=== PATIENT | female | born 1990 | race American Indian/Alaskan Native ===

== ENCOUNTER 2018-03-24 15:52 | Emergency (ER) | payer SELFPAY ==
[2018-03-24 16:04] VITALS: BP 123/64
--- NOTE | 2018-03-24 17:37 | Emergency Department Report ---
ED Headache HPI - General Chief Complaint: Headache Stated Complaint: MIGRAINE HEADACHE Time Seen by Provider: 03/24/18 17:23 - History of Present Illness Initial Comments: Patient is a 27-year-old female who is presenting with cough, congestion and headache. Patient states her headache is mostly frontal and region as well as above her nose and maxillary area. Patient says she is coughing and congested. Patient states is productive of just clear sputum. Patient denies any fevers or bodyaches nausea vomiting at this time. Patient states the headache is 5 out of 10 in severity. Allergies/Adverse Reactions: Allergies No Known Allergies Allergy (Unverified 02/04/14 11:58) Home Medications: Ambulatory Orders HYDROcodone/APAP 10-325 [Reydon 10-325 mg TAB] 1 each PO Q6HR PRN #12 tablet 08/12 Sulfamethoxazole/Trimethoprim [Bactrim Ds] 1 each PO Q12H #14 tablet 02/04/14 Doxycycline [Vibramycin] 100 mg PO Q12HR #28 capsule 05/28/16 Ketorolac [Toradol] 10 mg PO Q6H PRN #20 tablet 05/28/16 Ondansetron [Zofran Odt] 4 mg PO QID PRN #20 tab.rapdis 05/28/16 Amoxicillin/Potassium Clav [Augmentin 875-125 Tablet] 1 each PO BID #14 tablet 03/24/18 predniSONE [Deltasone] 20 mg PO QDAY #5 tab 03/24/18 traMADol [Ultram] 50 mg PO Q6HR PRN #10 tablet 03/24/18 ED Review of Systems ROS: Stated complaint: MIGRAINE HEADACHE Other details as noted in HPI Comment: All other systems reviewed and negative ED Past Medical Hx - Past Medical History Previous Medical History?: No - Surgical History Past Surgical History?: No - Social History Smoking Status: Never Smoker Substance Use Type: Alcohol - Medications Home Medications: Home Medications Medication Instructions Recorded Confirmed Last Taken Type HYDROcodone/APAP 10-325 [Reydon 1 each PO Q6HR PRN #12 tablet 02/04/14 Unknown Rx 10-325 mg TAB] Sulfamethoxazole/Trimethoprim 1 each PO Q12H #14 tablet 02/04/14 Unknown Rx [Bactrim Ds] Doxycycline [Vibramycin] 100 mg PO Q12HR #28 capsule 05/28/16 Unknown Rx Ketorolac [Toradol] 10 mg PO Q6H PRN #20 tablet 05/28/16 Unknown Rx Ondansetron [Zofran Odt] 4 mg PO QID PRN #20 tab.rapdis 05/28/16 Unknown Rx Amoxicillin/Potassium Clav 1 each PO BID #14 tablet 03/24/18 Unknown Rx [Augmentin 875-125 Tablet] predniSONE [Deltasone] 20 mg PO QDAY #5 tab 03/24/18 Unknown Rx traMADol [Ultram] 50 mg PO Q6HR PRN #10 tablet 03/24/18 Unknown Rx ED Physical Exam - General Limitations: No Limitations General appearance: alert, in no apparent distress - Head Head exam: Present: atraumatic, normocephalic, other (is mild sinus tenderness diffusely) - Eye Eye exam: Present: normal appearance - ENT ENT exam: Present: mucous membranes moist - Neck Neck exam: Present: normal inspection - Respiratory Respiratory exam: Present: normal lung sounds bilaterally. Absent: respiratory distress - Cardiovascular Cardiovascular Exam: Present: regular rate, normal rhythm. Absent: systolic murmur, diastolic murmur, rubs, gallop - GI/Abdominal GI/Abdominal exam: Present: soft, normal bowel sounds - Extremities Exam Extremities exam: Present: normal inspection - Back Exam Back exam: Present: normal inspection - Neurological Exam Neurological exam: Present: alert, oriented X3 - Psychiatric Psychiatric exam: Present: normal affect, normal mood - Skin Skin exam: Present: warm, dry, intact, normal color. Absent: rash ED Course Vital Signs 03/24/18 16:02 Temperature 98.2 F Pulse Rate 87 Respiratory 18 Rate Blood Pressure 123/64 O2 Sat by Pulse 99 Oximetry Critical care attestation.: If time is entered above; I have spent that time in minutes in the direct care of this critically ill patient, excluding procedure time. ED Disposition Clinical Impression: Upper respiratory infection Qualifiers: URI type: unspecified URI Qualified Code(s): J06.9 - Acute upper respiratory infection, unspecified Acute sinusitis Qualifiers: Sinusitis location: pansinusitis Disposition: - TO HOME OR SELFCARE Is pt being admited?: No Does the pt Need Aspirin: No Condition: Stable Instructions: Sinusitis (ED) Prescriptions: Amoxicillin/Potassium Clav [Augmentin 875-125 Tablet] 1 each PO BID #14 tablet predniSONE [Deltasone] 20 mg PO QDAY #5 tab traMADol [Ultram] 50 mg PO Q6HR PRN #10 tablet PRN Reason: Pain
== END 2018-03-24 18:05 | disposition home or self-care (01) ==
LOC: ED 15:52
DX: J06.9 Acute upper respiratory infection, unspecified (principal); J01.10 Acute frontal sinusitis, unspecified
CPT/HCPCS: 99282